=== PATIENT | female | born 1995 | race Caucasian/White ===

== ENCOUNTER 2023-01-04 16:50 | Inpatient (IN) | payer SELFPAY ==
[2023-01-04] VITALS (30 sets, daily range): BP systolic 114–142; BP diastolic 55–84; PULSE 73–125; TEMP 36.2–37.1; O2SAT 92–100; BMI 34.4
--- NOTE | 2023-01-04 16:56 | PCM.HP.OB ---
Documented by User: Dr. Tonia Esteves, 01/04/23 16:57 HPI - General General Date of Admission: 01/04/23 [facility] Home Medications fluoxetine 40 mg capsule (Prozac) 40 mg PO DAILY 01/04/23 [History Last Taken Unknown] vit no.95-ferrous fumarate 28 mg-folic acid 800 mcg tablet () 1 tab PO DAILY 01/04/23 [History Last Taken Unknown] Allergy/AdvReac Type Severity Reaction Status Date / Time No Known Allergies Allergy Verified 01/04/23 13:26 Social History Smoking Status: Never smoker Labs Labs Labs: Hct 42.0 % (37-47) Hgb 14.3 g/dl (12.0-15.0) Assessment & Plan (1) 40 weeks gestation of : (2) History of section: (3) Anemia affecting : (4) Accelerated growth of fetus: Documented by User: Dr. Yahaira Mai, 01/04/23 17:05 HPI - General General Date of Admission: 01/04/23 Date of Service: 01/04/23 Chief Complaint: contractions HPI Narrative MINESH WELLER, is a 27 F who presents at 40w1d with ctx's. She reports painful and regular contractions that are getting stronger in intensity and closer together. No vb or lof. Good FM. She offers no complaints at this time. [facility] Home Medications fluoxetine 40 mg capsule (Prozac) 40 mg PO DAILY 01/04/23 [History Last Taken Unknown] vit no.95-ferrous fumarate 28 mg-folic acid 800 mcg tablet () 1 tab PO DAILY 01/04/23 [History Last Taken Unknown] Allergy/AdvReac Type Severity Reaction Status Date / Time No Known Allergies Allergy Verified 01/04/23 13:26 Social History Smoking Status: Never smoker NST FHR Rate Baby A Baseline: 120 Variability:: Moderate Accelerations:: 15 x 15 Decelerations:: None NST Reactive:: Yes FHR Category:: Category I Uterine Activity:: Ctx's now q 1-2 min Vital Signs Vital Signs Vital Signs: 01/04/23 13:32 01/04/23 13:32 01/04/23 13:32 Temperature Temperature Source Temporal Pulse Rate 78 Blood Pressure 120/71 BP Systolic 120 BP Diastolic 71 01/04/23 13:32 Temperature 97.8 F Temperature Source Pulse Rate Blood Pressure BP Systolic BP Diastolic Weight Weight: 188 lb 7.924 oz Body Mass Index (BMI) 34.4 Labs Labs Labs: Hct 42.0 % (37-47) Hgb 14.3 g/dl (12.0-15.0) Assessment & Plan (1) 40 weeks gestation of : PLAN: Admit for routine intrapartum care. Discussed r/b/a of TOLAC versus repeat section with patient in detail. Reviewed predicted chance of success given clinical scenario. She understands there is a risk of failing to progress in labor and needing a section at that time. She understands that with a section once laboring there is a higher risk for hemorrhage, need for blood transfusion, and infection. Reviewed limitations with a third trimester growth ultrasound. Discussed risk of shoulder dystocia. Counseled patient and partner extensively at bedside and questions answered. Recommend AROM with internal monitors when able, as well as an epidural, if she desires TOLAC. Operative report was reviewed in the office and TOLAC consent was signed in the office as pt planned on TOLAC if spontaneous labor. Will assess for cervical change in 30 minutes and patient is considering her option for TOLAC vs repeat C/S. GBS negative. (2) History of section: (3) Anemia affecting : (4) Accelerated growth of fetus:
[2023-01-04] MEDS: Lactated Ringers 1,000 ML 50 ML IV (17:30)
[2023-01-04 17:36] LABS: Absolute Lymphocyte Count 1.85 X10^3/uL (0.83-4.51); Absolute Neutrophil Count 5.5 X10^3/uL (2.0-7.7); Basophil# 0.02 X10^3/uL; Basophil% 0.3 % (0-1); Eosinophil# 0.01 X10^3/uL; Eosinophils% 0.1 % (0-5); Hematocrit 36.7 % (37-47); Hemoglobin 12.3 g/dL (12.0-15.0); Lymphocyte # 1.85 X10^3/ul (0.83-4.51); Lymphocyte % 23.3 % (19-41); Mean Corp Hgb Conc 33.5 g/dL (32-36); Mean Corpuscular Hgb 32.4 pg (27.0-32.0); Mean Corpuscular Volume 96.6 fL (81-99); Mean Platelet Vol. 10.4 fl (6.2-12.0); Monocyte# 0.52 X10^3/uL; Monocyte% 6.5 % (0-10); NRBC Flagged by Analyzer 0 % (0-5); Neutrophil # 5.52 X10^3/uL (2.7-7.7); Neutrophil % 69.5 % (47-70); Platelet Count 157 K/mm3 (150-450); RBC Distribution Width CV 14.2 % (11.6-14.6); RBC Distribution Width SD 49.4 fl (35.1-43.9); White Blood Count 7.9 K/mm3 (4.4-11.0)
--- NOTE | 2023-01-04 17:41 | PN_ITS ---
Progress Note At bedside to check pt. She is getting more uncomfortable with ctx's. Assessment & Plan Assessment/Plan (1) 40 weeks gestation of : PLAN: Cvx /-2, posterior, vertex. Unable to perform AROM at this time given cervix is posterior. Pelvis adequate. Category 1 tracing. [place] with ctx's q 1-2 min. Patient requests to TOLAC given cervical change. She understands lower chance of success with advancing gestational age and accelerated growth. She understands risks of failure to progress and shoulder dystocia. She declines a repeat section at this time. (2) History of section: (3) Anemia affecting : (4) Accelerated growth of fetus:
[2023-01-04] MEDS: fentaNYL 100 MCG/2 ML Ampul IV (18:02)
[2023-01-04 18:46] LABS: Syphilis Antibodies Non-reactive
[2023-01-04] MEDS: LACTATED RINGERS 500 ML 999 ML IV (20:30)
[2023-01-04] MEDS: fentaNYL-bupivacaine (epidural) 100 ML BAG EPIDURAL (21:35)
[2023-01-04] MEDS: Ondansetron 4 MG/2 ML Vial IV (23:56)
[2023-01-05] VITALS (50 sets, daily range): BP systolic 101–118; BP diastolic 52–77; PULSE 69–111; RESP 16; TEMP 36.1–36.8; O2SAT 91–100
[2023-01-05] MEDS: fentaNYL-bupivacaine (epidural) 100 ML BAG EPIDURAL ×2 (01:54→06:32)
[2023-01-05] MEDS: Lactated Ringers 1,000 ML 200 ML IV (03:56)
[2023-01-05] MEDS: Oxytocin 10 UNITS/ML Vial IM (07:37)
[2023-01-05] MEDS: Oxytocin 15 Units/NS 250ml 15 UNITS/250 ML IV.SOLN 334 UNITS IV (07:38)
[2023-01-05] MEDS: Methylergonovine 0.2 MG/ML Ampul IM (07:41)
--- NOTE | 2023-01-05 08:20 | PCM.OPRPT ---
Problems Associated Problem List Diagnoses (1) (vaginal after ): (2) Third degree perineal laceration: Report of Operation Date of Procedure: 01/05/23 Pre-Operative Diagnosis: 40 week gestation, spontaneous labor, history of prior section, TOLAC Post-Operative Diagnosis: As above, , 3A perineal laceration Surgery/Procedure Performed:: Repair of third degree perineal laceration Description of Surgical Findings:: VMI in OA position. Normal appearing placenta that is intact with 3 VC. 3rd degree perineal laceration Surgeon: Yahaira Mai Type of Anesthesia: Epidural Special Medications: None Specimen's removed: Placenta Drains: [place] Estimated Blood Loss (mL): 400 Fluids Replaced: N/A Description of Procedure: The patient spontaneously ruptured and progressed to complete without any augmentation. Once complete we began pushing. Variable decelerations were noted with pushing but with good recovery in between pushing to a normal baseline with moderate variability. Good maternal pushing effort with great descent was noted. The head of the infant was delivered in occiput anterior position. The anterior shoulder was delivered with gentle downward traction without any excessive force or delay. The posterior shoulder and body of the were delivered without any force or delay. A vigorous viable male was delivered and placed on the maternal abdomen. The cord was clamped and cut after a 60 sec delay. The placenta was delivered with fundal massage and noted to be normal-appearing and intact intact with a three-vessel cord. Pitocin was initiated. Brisk bleeding was noted and fundus was noted to be boggy. The uterus was explored x1 and cleared of clot. Methergine x1 was given and uterine massage was given which led to a firm uterus and scant bleeding. A 3A perineal laceration was noted. The external anal sphincter was reinforced and reapproximated in an end-to-end fashion with interrupted 0 Vicryl. A 3-0 Vicryl was then used to repair the second-degree laceration in usual fashion. A rectal exam was performed after repair and was noted to be normal. Needle and sponge counts were correct. Vaginal sweep was performed. Fundus was again noted to be firm with bleeding hemostatic. Grafts/Implants Used: None Complications None Admit VTE Documentation VTE Present on Admission: No
[2023-01-05] MEDS: Ondansetron 4 MG/2 ML Vial IV (08:23)
[2023-01-05] MEDS: Oxytocin 15 Units/NS 250ml 15 UNITS/250 ML IV.SOLN 83 UNITS IV (09:14)
[2023-01-05] MEDS: Cefazolin 2 GM in 0.9% Normal Saline (100mL Bag) 100 ML IV (09:53)
[2023-01-05] MEDS: Fluoxetine HCl 40 MG CAPSULE PO (10:24)
[2023-01-05] MEDS: Senna/Docusate Sodium 1 Tablet PO (10:24)
[2023-01-05] MEDS: Acetaminophen 500 MG Tablet 1000 MG PO ×2 (10:28→16:31)
[2023-01-05] MEDS: Ibuprofen 600 MG Tablet PO ×2 (14:04→20:07)
[2023-01-06] MEDS: Acetaminophen 500 MG Tablet 1000 MG PO ×2 (01:59→14:52)
[2023-01-06 05:00] VITALS: BP 103/55; PULSE 77
[2023-01-06 05:22] VITALS: BP 103/55; PULSE 80; RESP 16; TEMP 36.8; O2SAT 99
[2023-01-06 08:23] VITALS: BP 115/54; PULSE 83
[2023-01-06 08:25] VITALS: BP 115/54; PULSE 84; RESP 18; TEMP 36.2; O2SAT 99
--- NOTE | 2023-01-06 08:50 | PCM.PN.OB ---
Subjective Subjective Pain well controlled. Average lochia. Ambulating urinating without difficulty. Tolerating regular diet. Bottom is sore but pain is controlled with Motrin and Tylenol. Objective Data Objective Data Vital Signs: Vital Signs Temp Pulse Resp BP Pulse Ox O2 Del Method 98.2 F 83 16 115/54 L 99 Room Air 01/06/23 05:22 01/06/23 08:23 01/06/23 05:22 01/06/23 08:23 01/06/23 05:22 01/06/23 05:22 Oxygen Delivery Method Room Air Weight: 85.5 kg Body Mass Index (BMI) 34.4 Intake & Output: Intake and Output for Last 24 Hours 01/04/23 01/05/23 01/06/23 23:59 23:59 23:59 Intake Total 500 / 825 2356.0 / 2356.0 Output Total 1600 / 1600 Balance 500 / 825 756.0 / 756.0 Lab / Micro Data 01/04/23 17:15 Physical Exam Const alert and no apparent distress Narrative: Fundus firm, below umbilicus. Assessment & Plan (1) (vaginal after ): PLAN: day #1. is breast-feeding and doing well. Patient is doing well. Discussed with her care for her third-degree laceration. Follow-up in the office in 1 to 2 weeks or as needed. (2) Third degree perineal laceration:
--- NOTE | 2023-01-06 08:53 | DCINST_ITS ---
Discharge Instructions Diet Discharge Diet: No restrictions Activity May resume sexual activity in: 6 weeks Dressing / Incision Call your doctor if your incision/area has: Continuous Slow Oozing, Sudden Increased Bleeding, Foul Smelling Discharge and Swelling at the incision site Call your doctor if you observe: Fever of 101 or Higher and Inability to urinate Follow Up Care Please Follow Up With: Yahaira Mai DO When: Follow up with our office in 1-2 and 6 weeks or as needed. [phone] Test Results: Test results from this visit will be discussed in further detail at your follow- up appointment, if applicable. Discharge Plan Admission Admit Date/Time: 01/04/23 16:50 Primary Reason for Your Visit: Vaginal delivery Attending Provider: Yahaira Mai Discharge Orders/Prescriptions Prescriptions: New docusate sodium [DOK] 100 mg capsule 100 mg PO BID PRN PRN (Reason: stool softening) 30 Days Qty: 60 1RF ibuprofen [ibuprofen] 600 mg tablet 600 mg PO Q6H PRN (Reason: Pain) 20 Days Qty: 60 1RF Continued fluoxetine [Prozac] 40 mg capsule 40 mg PO DAILY PNV cmb#95-ferrous fumarate-FA [] 28 mg iron- 800 mcg tablet 1 tab PO DAILY Disposition Disposition (needs filled in before D/C Order can be placed): Home, Self Care
[2023-01-06] MEDS: Ibuprofen 600 MG Tablet PO (09:12)
[2023-01-06] MEDS: Senna/Docusate Sodium 1 Tablet PO (09:12)
[2023-01-06] MEDS: Fluoxetine HCl 40 MG CAPSULE PO (09:13)
[2023-01-06 14:40] VITALS: BP 106/55; PULSE 93; RESP 17; TEMP 36.3; O2SAT 95
[2023-01-06 14:42] VITALS: BP 106/55; PULSE 91
--- NOTE | 2023-01-06 15:00 | CASEMGMT ---
Social Work Assessment Labor and Delivery Unit Patient Address:[address] [place] [address] [place] [address] Phone number: [phone] Date of Referral: 01/05/23 Time of Referral:? 756 Referred By: Yahaira Mai Date of Intervention: 01/06/23?? Time of Intervention:? 1030 Reason for Referral:? anxiety and depression (patient on zoloft) Sw completed chart review and acknowledges social work consult due to maternal history of anxiety and depression.Sw presented to bedside and introduced self to mother of baby (MOB- Nelson) and father of baby (FOB-Rinku). Sw explained reason for sw consult and completed psychosocial assessment. Sw asked FOB to step out of room momentarially so that sw could complete [place] Depression Scale with MOB. FOB did so respectfully. History obtained from: medical records, MOB and FOB. ??? Household composition: Currently residing in the family home is JENNIFER VELASQUEZ, their twin sons (22 months old, Reinaldo and Fernando) and now baby boy. MOB states that housing is adequate aside from mold that they are working on having assessed and removed. Patient's parent/guardian status:? MOB states that parents have been together for 8-9 years. FOB states that they met through the young group in their community/ evangelical. Medical History: ?RON is 27 year old, female who is 2, para 2-3. MOB had twins her first who are now 22 months old (Fernando and Reinaldo). MOB delivered baby via successful at 40 weeks gestation. Baby boy, Sathish, was born weighing 8lb 9oz and his apgars were 8 and 9 at one and five minutes of life, respectfully. MOB states that baby is well. Educational Status:? Both parents completed 8th grade, as is common in [employer] culture. ? Financial Status: FOB is gainfully employed outside of the home. FOB reports that he works as a aviation metalsmith. MOB is a stay at home mom. Supplies:?? Parents report that they have everything they need for baby, including: car seat, safe sleep space, clothes, diapers, wipes and a breast pump. Childcare/Caregiver(s): MOB will be the primary caregiver to baby, along with FOB when he is not at work. ? Transportation:?? Parents use a ross carrier driver for means of transportation, and a hose and buggy when they are making local trips. Programs/Agencies Involved: RON states that she is connected to counseling services at [facility]. ??? Children Services/Legal Issues:??? No history of children services involvement, no issues or concerns warranting a referral to be made at this time. Behavioral Health Issues: ??Mental Health History:?FOB denies mental health history. MOB states that she has been diagnosed with depression and anxiety. MOB states that she has been prescribed Prozac. MOB states that she is familiar with signs and symptoms of baby blues and depression/ anxiety to be on the lookout for. ?RON completed an [place] Depression Scale and her score was a 7. Sw provided education and support. ?? Substance Use History:?No substance use prior to or during . ? Family History: RON states that her family has a history of depression, and that most of the women in her family are on some form of anti-depressant. MOB denies family substance use. ? Drug Screens: no urine screens observed in chart review. Family/Social Stressors:? MOB denies stressors or concerns at this time. Support Systems: RON identifies a lot of family, friends and people from evangelical as her support network. Depression/Shaken Baby/Safe Sleeping: Sw educated parents on signs and symptoms of baby blues and depression/ anxiety to be on the lookout for. Sw provided parents with literature. MOB and FOB expressed understanding. Sw also educated parents on shaken baby prevention and ABCs of safe sleep. Parents expressed understanding. ? ASSESSMENT:? MOB currently hospitalized due to delivery of baby boy. MOB open and honest regarding her mental health history and struggles she has experienced in the past . Parents were open and receptive to sw involvement and support, as well as resources and literature provided. MOB was observed to be tending to baby with hands on care in appropriate manner. PLAN:? MOB and baby to be discharged when medically ready. ?No other services requested or indicated. Claritza Santiago, ONCOLOGY RADIATION PHYSICIAN, [employer] SERVICE MANAGER
== END 2023-01-06 15:00 | disposition home or self-care (01) | DRG 768 ==
LOC: WPOUT 16:53 → WP 16:53
PROVIDERS: Admitting Provider Obstetrics & Gynecology; Visit Provider Obstetrics & Gynecology
DX: O76 Abnormality in fetal heart rate and rhythm complicating labor and delivery (principal); Z37.0 Single live birth; O70.21 Third degree perineal laceration during delivery, IIIa; O34.219 Maternal care for unspecified type scar from previous cesarean delivery; O99.02 Anemia complicating childbirth; O36.63X0 Maternal care for excessive fetal growth, third trimester, not applicable or unspecified; Z3A.40 40 weeks gestation of pregnancy
CPT/HCPCS: 59025; 59050; 85025; 86780; 86850; 86900; 86901; 99221; J7120; G0378; J2405

== ENCOUNTER 2023-01-09 20:32 | Observation (INO) | payer OTHER, SELFPAY ==
[2023-01-09 20:33] VITALS: BP 110/78; PULSE 82; RESP 18; TEMP 36.6; O2SAT 98; BMI 31.0
--- NOTE | 2023-01-09 20:50 | CT_ITS ---
STUDY: CT PELVIS WITH CONTRAST REASON FOR EXAM: Female, 27 years old. perineal hematoma RADIATION DOSAGE (If Supplied By Facility): CTDIvol = ( 21.21 ) mGy, DLP = ( 783.98 ) mGycm TECHNIQUE: Transaxial imaging of the pelvis was performed without oral contrast. IV 100mL Isovue-370 was administered intravenously. Individualized dose optimization techniques were used for this CT. COMPARISON: None. FINDINGS: Normal urinary bladder. Normal visualized small intestine. Normal visualized colon. There is no pelvic fluid. There is no pelvic lymphadenopathy or mass lesion. Enlarged uterus. Normal visualized pelvic arteries. Normal abdominal wall. Normal osseous structures. CT/Pelvis WITH IV Contrast IMPRESSION: Normal enhanced CT of the pelvis. Electronically Signed: Kofi Mclean MD at 22:58 EDT ,
[2023-01-09] MEDS: Ondansetron 4 MG/2 ML Vial IV (21:26)
[2023-01-09] MEDS: HYDROmorphone 1 MG/ML Syringe 0.5 MG IV (21:26)
[2023-01-09 21:29] LABS: Hematocrit 27.2 % (37-47); Hemoglobin 8.9 g/dL (12.0-15.0); Mean Corp Hgb Conc 32.7 g/dL (32-36); Mean Corpuscular Hgb 31.9 pg (27.0-32.0); Mean Corpuscular Volume 97.5 fL (81-99); Mean Platelet Vol. 8.9 fl (6.2-12.0); Platelet Count 189 K/mm3 (150-450); RBC Distribution Width CV 14.3 % (11.6-14.6); RBC Distribution Width SD 50.7 fl (35.1-43.9); Red Blood Count 2.79 M/mm3 (4.2-5.4); White Blood Count 7.3 K/mm3 (4.4-11.0)
[2023-01-09 21:48] LABS: Anion Gap 4 (5-15); BUN 10 mg/dL (7-18); BUN/Creat Ratio 20.3 RATIO (10-20); Calcium,Total 8.5 mg/dL (8.5-10.1); Chloride 109 mmol/L (98-107); Creatinine, Serum 0.49 mg/dL (0.55-1.02); EST Glomerular Filtration Rate 161 mL/min (>60); Est Glom Filt Rate - Afr Amer 195 mL/min (>60); Estimated Creatinine Clearance 143.92 ml/min; Glucose 92 mg/dL (74-106); Potassium 3.6 mmol/L (3.5-5.1); Sodium Level 139 mmol/L (136-145)
--- NOTE | 2023-01-09 21:49 | EDS_ITS ---
HPI History of Present Illness Chief Complaint: Other, Pain/Inj Informant: patient Onset/Context/Timing Onset: Today Context: Gradual Onset Timing: Continuous Quality: Aching Location: Perineum Worsened by: Nothing Relieved by: Nothing Narrative Narrative: Patient presents with pelvic pain that became worse today. Patient states she had a recent vaginal delivery with a perineal tear. Patient had it repaired at the time of delivery. Patient states that today the pain and swelling became worse. Patient denies any trauma. Patient denies any fevers or chills. Patient denies any vaginal bleeding or discharge. Patient denies any abdominal pain, nausea, or vomiting. Patient denies any urinary complaints. [facility] Medical History Anemia Anxiety Depression GERD (gastroesophageal reflux disease) Home Medications fluoxetine 40 mg capsule (Prozac) 40 mg PO DAILY 01/04/23 [History Last Taken Unknown] vit no.95-ferrous fumarate 28 mg-folic acid 800 mcg tablet () 1 tab PO DAILY 01/04/23 [History Last Taken Unknown] docusate sodium 100 mg capsule (DOK) 100 mg PO BID PRN PRN stool softening 30 days #60 CAPSULES 01/06/23 [Rx Last Taken Unknown] ibuprofen 600 mg tablet 600 mg PO Q6H PRN Pain 20 days #60 TABLETS 01/06/23 [Rx Last Taken Unknown] Allergy/AdvReac Type Severity Reaction Status Date / Time No Known Allergies Allergy Verified 01/09/23 20:35 Surgical History History of appendectomy History of delivery Social History Smoking Status: Never smoker ROS ROS ED Constitutional Constitutional ED: Denies chills or fever(s) Eyes Eyes: Denies blurry vision or change in vision ENT ENT ED: Denies rhinorrhea or sore throat Cardiovascular Cardiovascular: Denies chest pain or palpitations Respiratory/Chest Respiratory/Chest: Denies cough or dyspnea Gastrointestinal Gastrointestinal: Denies nausea or vomiting Genitourinary Genitourinary ED: Denies dysuria or hematuria Musculoskeletal Musculoskeletal: Denies back pain or neck pain Integumentary Denies abscess or rash Neurologic Neurologic: Denies headache(s) or weakness Allergic/Immunologic Allergic/Immunologic ED: Denies mouth swelling or urticaria EXAM Physical Exam Const Vital Signs: 01/09/23 20:33 01/09/23 20:48 Temperature 97.9 F Temperature Source Temporal Pulse Rate 82 Respiratory Rate 18 Respiratory Pattern Normal Blood Pressure 110/78 Blood Pressure Mean 88 Pulse Ox 98 Oxygen Delivery Method Room Air Positive well nourished and well developed General Appearance ED: well developed and NAD HEENT Reports moist mucous membranes Neck supple and no JVD Resp normal respiratory effort and clear to auscultation bilaterally Cardio regular rate and regular rhythm GI normal to inspection, nondistended, normoactive bowel sounds and non-tender Palpation: soft Narrative: Pelvic exam was performed by Dr. Mai. Extremity normal to inspection General Extremety ED: Negative for edema or tenderness General Extremity: Negative for edema Neuro oriented x3, CN's II-XII intact bilaterally and no sensory deficits noted Sensorium / Orientation: alert Motor Exam: strength 5/5 throughout Psych mental status grossly normal Skin no rashes or lesions noted MDM MDM MDM Narrative Medical decision making narrative: Differential diagnosis includes abscess, hematoma, wound infection, and postoperative pain. CBC will be obtained to assess for leukocytosis and anemia. Basic metabolic profile will be obtained to assess for electrolyte abnormality and renal function. CT scan of the pelvis will be obtained to assess for abscess and hematoma. Lab Data Attestation: I reviewed the patient's lab results. Lab results narrative: CBC was reviewed. There is a mild anemia with a hemoglobin of 8.9 and hematocrit 27.2. Basic metabolic profile was reviewed and was essentially within normal limits. Labs: Laboratory Results - last 24 hr 01/09/23 21:20 WBC 7.3 RBC 2.79 L Hgb 8.9 L Hct 27.2 L MCV 97.5 MCH 31.9 MCHC 32.7 RDW Std Deviation 50.7 H RDW Coeff of Cristobal 14.3 Plt Count 189 MPV 8.9 Sodium 139 Potassium 3.6 Chloride 109 H Carbon Dioxide 26.0 Anion Gap 4 L BUN 10 Creatinine 0.49 L Estim Creat Clear Calc 143.92 Est GFR (MDRD) Af Amer 195 Est GFR (MDRD) Non-Af 161 BUN/Creatinine Ratio 20.3 H Glucose 92 Calcium 8.5 Treatment and Re-Evaluation :: Patient was given a dose of hydromorphone and a dose of Zofran. Dr. Mai was here to evaluate the patient and perform pelvic exam after analgesia. Dr. Karlo wall noted that there was a hematoma on pelvic examination. She reviewed the CAT scan and noted a perineal hematoma. She stated that if the CT scan results did not show any active bleeding, she will admit the patient here and recheck her hemoglobin tomorrow. She noted that if the CT scan showed active bleeding patient would need to be transferred to a facility with gynecology oncology. CT scan of the pelvis was interpreted by the radiologist as normal. This was also independently reviewed by myself. Case was discussed with Dr. Mai. She will admit the patient to her service for observation. Patient and family understand and are agreeable with the plan. All questions were answered. Discharge Plan Triage Chief Complaint: Other, Pain/Inj ED Provider: Horacio Grigsby Dx/Rx/DC Orders Clinical Impression: Perineal hematoma in period, Anemia Prescriptions: No Action fluoxetine [Prozac] 40 mg capsule 40 mg PO DAILY PNV cmb#95-ferrous fumarate-FA [] 28 mg iron- 800 mcg tablet 1 tab PO DAILY docusate sodium [DOK] 100 mg capsule 100 mg PO BID PRN PRN (Reason: stool softening) 30 Days Qty: 60 1RF ibuprofen [ibuprofen] 600 mg tablet 600 mg PO Q6H PRN (Reason: Pain) 20 Days Qty: 60 1RF Primary Care Provider: Care Physician,No Primary Referrals: Care Physician,No Primary [Primary Care Provider] - Disposition Disposition: [facility]
--- NOTE | 2023-01-09 22:33 | PCM.HP.OB ---
HPI - General General Date of Service: 01/09/23 Chief Complaint: pain HPI Narrative MINESH WELLER, is a 27 F who presents with perineal pain. She delivered 5 days ago by . weighed 8 lb 12 oz and she had a 3A perineal laceration. She reports she felt well at home but then after having several soft BM's, she noticed increased pain. She reports the pain is severe and she is unable to sit upright. She had an isolated episode of dizziness which has resolved. No further lightheadedness or dizziness. She denies fevers, chills, malaise. . Lochia has been normal. [facility] Medical History Anemia Anxiety Depression GERD (gastroesophageal reflux disease) Home Medications fluoxetine 40 mg capsule (Prozac) 40 mg PO DAILY 01/04/23 [History Last Taken Unknown] vit no.95-ferrous fumarate 28 mg-folic acid 800 mcg tablet () 1 tab PO DAILY 01/04/23 [History Last Taken Unknown] docusate sodium 100 mg capsule (DOK) 100 mg PO BID PRN PRN stool softening 30 days #60 CAPSULES 01/06/23 [Rx Last Taken Unknown] ibuprofen 600 mg tablet 600 mg PO Q6H PRN Pain 20 days #60 TABLETS 01/06/23 [Rx Last Taken Unknown] Allergy/AdvReac Type Severity Reaction Status Date / Time No Known Allergies Allergy Verified 01/09/23 20:35 Surgical History History of appendectomy History of delivery Social History Smoking Status: Never smoker History Elective abortions Hx Para 2 Spontaneous abortions Hx # Term Pregnancies Ectopic pregnancies Hx # Pregnancies Multiple births # of living children Vital Signs Vital Signs Vital Signs: 01/09/23 20:33 01/09/23 20:48 Temperature 97.9 F Temperature Source Temporal Pulse Rate 82 Respiratory Rate 18 Respiratory Pattern Normal Blood Pressure 110/78 Blood Pressure Mean 88 Pulse Ox 98 Oxygen Delivery Method Room Air Weight Weight: 175 lb 5 oz Body Mass Index (BMI) 31.0 Physical Exam Const alert and no apparent distress General Appearance: comfortable HEENT normocephalic Resp normal respiratory effort GI soft to palpation, non-tender and non-distended Narrative: There is a 3 cm hematoma just above the anus that is soft to palpation. Rectal exam is normal and no firmness palpated on exam. No sutures palpated on rectal exam. The upper half of the perineum is normal and intact, without a hematoma or swelling. On digital vaginal exam there is no firmness palpated and no hematoma felt. Labs Labs Labs: Blood Type Pending Antibody Screen NEGATIVE Hct 27.2 % (37-47) L Hgb 8.9 g/dL (12.0-15.0) L Syphilis Total Ab Non-reactive Assessment & Plan (1) Third degree perineal laceration: (2) (vaginal after ): (3) Perineal hematoma in period: PLAN: - Observation overnight - CT of pelvis with IV contrast is normal - Hgb 8.9 but a CBC was not checked after delivery. No symptoms of anemia at this time. Recheck CBC in AM - Pain medication PRN - Apply pressure to the hematoma - Discussed possible need for transfer to tertiary care center with uro installer interior assemblies - Has uro installer interior assemblies appointment on Friday but may need to be seen sooner - Will reassess in AM
[2023-01-09 23:31] VITALS: BP 123/69; PULSE 70; RESP 16; TEMP 36.6; O2SAT 98
[2023-01-10 00:15] VITALS: BMI 30.5
[2023-01-10 00:24] VITALS: BP 108/57; PULSE 70; RESP 16; TEMP 36.5; O2SAT 98
[2023-01-10] MEDS: 0.9% Normal Saline (1000mL) 1,000 ML 100 ML IV (00:31)
[2023-01-10] MEDS: Ibuprofen 600 MG Tablet PO (05:47)
[2023-01-10 05:53] VITALS: BP 126/84; PULSE 88; RESP 16; TEMP 36.6; O2SAT 100
[2023-01-10 06:36] LABS: Hematocrit 29.2 % (37-47); Hemoglobin 9.5 g/dL (12.0-15.0); Mean Corp Hgb Conc 32.5 g/dL (32-36); Mean Corpuscular Hgb 32.8 pg (27.0-32.0); Mean Corpuscular Volume 100.7 fL (81-99); Mean Platelet Vol. 8.9 fl (6.2-12.0); Platelet Count 185 K/mm3 (150-450); RBC Distribution Width CV 14.3 % (11.6-14.6); RBC Distribution Width SD 52.6 fl (35.1-43.9); White Blood Count 5.8 K/mm3 (4.4-11.0)
--- NOTE | 2023-01-10 08:40 | PCM.PN.OB ---
Subjective Subjective Patient states pain is stable. It is controlled with laying flat but otherwise is painful. Objective Data Objective Data Vital Signs: Vital Signs Temp Pulse Resp BP Pulse Ox O2 Del Method 97.8 F 88 16 126/84 H 100 Room Air 01/10/23 05:53 01/10/23 05:53 01/10/23 05:53 01/10/23 05:53 01/10/23 05:53 01/10/23 05:53 Oxygen Delivery Method Room Air Weight: 172 lb 6.4 oz Body Mass Index (BMI) 30.5 Lab / Micro Data 01/10/23 06:06 01/09/23 21:20 Labs: Laboratory Results - last 24 hr 01/09/23 21:20: WBC 7.3, RBC 2.79 L, Hgb 8.9 L, Hct 27.2 L, MCV 97.5, MCH 31.9, MCHC 32.7, RDW Std Deviation 50.7 H, RDW Coeff of Cristobal 14.3, Plt Count 189, MPV 8.9, Sodium 139, Potassium 3.6, Chloride 109 H, Carbon Dioxide 26.0, Anion Gap 4 L, BUN 10, Creatinine 0.49 L, Estim Creat Clear Calc 143.92, Est GFR (MDRD) Af Amer 195, Est GFR (MDRD) Non-Af 161, BUN/Creatinine Ratio 20.3 H, Glucose 92, Calcium 8.5 01/10/23 06:06: WBC 5.8, RBC 2.90 L, Hgb 9.5 L, Hct 29.2 L, MCV 100.7 H, MCH 32.8 H, MCHC 32.5, RDW Std Deviation 52.6 H, RDW Coeff of Cristobal 14.3, Plt Count 185, MPV 8.9 Radiography Diagnostic Testing: Radiology Impression Pelvis CT 01/09/23 20:50 IMPRESSION: Normal enhanced CT of the pelvis. Electronically Signed: Kofi Mclean MD at 22:58 EDT , Physical Exam Const alert, oriented x3 and no apparent distress Narrative: There is a 3 cm hematoma just above the anus that is soft to palpation. The upper half of the perineum is normal and intact, without a hematoma or swelling Assessment & Plan (1) Perineal hematoma in period: COMMENT: HD#2 PLAN: Plan Perineal hematoma is stable in size. No evidence of active bleeding. Hb stable. Patient scheduled to see urogyn Friday. Will discuss plan with & see about possibility of seeing patient sooner. Likely d/c from [facility] later today.
[2023-01-10] MEDS: Docusate Sodium 100 MG Capsule PO (08:41)
--- NOTE | 2023-01-10 08:43 | DCINST_ITS ---
Discharge Instructions Diet Discharge Diet: No restrictions Activity Discharge Activity: May Shower May resume sexual activity in: 8 weeks Weight Bearing Status: Weight bearing as tolerated Dressing / Incision Call your doctor if your incision/area has: Continuous Slow Oozing, Sudden Increased Bleeding, Increased Pain/ Swelling, Increased Redness, Foul Smelling Discharge and Swelling at the incision site Call your doctor if you observe: Fever of 101 or Higher, Coldness, Increased Pain, Change in Color, Inability to urinate, Using more than 1 pad per hour, Shortness of breath, Dizziness, Fainting spells, Chest pain, Increased palpitations (irregular heartbeat) and Uncontrolled pain Cleanse incision/area with: Soap & Water Follow Up Care Please Follow Up With: Yahaira Mai DO When: 1-2 weeks Test Results: Test results from this visit will be discussed in further detail at your follow- up appointment, if applicable. Discharge Plan Admission Admit Date/Time: 01/09/23 23:08 Primary Reason for Your Visit: Perineal hematoma Attending Provider: Yahaira Mai Primary Care Provider: Care PhysicianRadha Primary Discharge Orders/Prescriptions Prescriptions: Continued fluoxetine [Prozac] 40 mg capsule 40 mg PO DAILY PNV [id number] fumarate-FA [] 28 mg iron- 800 mcg tablet 1 tab PO DAILY ibuprofen 600 mg tablet 600 mg PO Q6H PRN (Reason: Pain) 20 Days Qty: 60 1RF No Action docusate sodium [DOK] 100 mg capsule 100 mg PO BID PRN PRN (Reason: stool softening) 30 Days Qty: 60 1RF Referrals / Follow Up: Care PhysicianRadha Primary [Primary Care Provider] - Disposition Disposition (needs filled in before D/C Order can be placed): Home, Self Care
[2023-01-10 08:44] VITALS: BP 123/80; PULSE 75; RESP 18; TEMP 36.6; O2SAT 98
--- NOTE | 2023-01-10 11:09 | NURSING ---
IBCLC called to [facility] to speak with primary RN. Primary RN reports FOB and infant are both with patient, and patient has been nursing infant. IBCLC confirmed safety of medications ordered, including motrin, tylenol, colace, and dilaudid (L3). Primary RN to call back to IBCLC if any questions or concerns arise during patient's hospital stay.
== END 2023-01-10 12:34 | disposition home or self-care (01) ==
LOC: ED 23:09 → MS3 23:27
PROVIDERS: Admitting Provider Obstetrics & Gynecology; Emergency Provider Emergency Medicine; Visit Provider Obstetrics & Gynecology
DX: O71.7 Obstetric hematoma of pelvis (principal); O99.345 Other mental disorders complicating the puerperium; F32.A Depression, unspecified; F41.9 Anxiety disorder, unspecified; Z79.899 Other long term (current) drug therapy; O99.63 Diseases of the digestive system complicating the puerperium; K21.9 Gastro-esophageal reflux disease without esophagitis; O90.81 Anemia of the puerperium
CPT/HCPCS: 36415; 72193; 80048; 85027; 96361; 96374; 96375; 99221; 99284; J7030; Q9967; A4216; G0378; J2405